=== PATIENT | male | born 1950 | race Two or more races ===

== ENCOUNTER 2024-07-01 05:35 | Day surgery (SDC) | payer OTHER, SELFPAY ==
--- NOTE | 2024-06-30 09:28 | EKG_ITS ---
[facility] Test Date: 2024-06-30 Pat Name: TESFAYE HERNANDEZ Department: Room: - Gender: Male Manager Home Improvement: CHACORTA : 1950 Requested By: Chris Merino Order Number: [id number] Reading MD: Chris Merino Measurements Intervals [place] Rate: 112 P: 15 WA: 180 QRS: 14 QRSD: 84 T: 14 QT: 300 QTc: 411 Interpretive Statements SINUS TACHYCARDIA LOW QRS VOLTAGE IN PRECORDIAL LEADS ABNORMAL RHYTHM ECG No previous ECG available for comparison /[id number]/S0/[id number]
[2024-06-30 09:36] VITALS: BMI 35.4
[2024-06-30 12:06] LABS: Basophils # (Auto) 0.1 Thou/mm3 (0.0-0.2); Basophils % (Auto) 1 % (0-2.5); Eosinophils # (Auto) 0.7 Thou/mm3 (0.0-0.5); Eosinophils % (Auto) 8 % (0-10); Hematocrit 41.5 % (41.0-53.0); Hemoglobin 14.4 g/dL (13.5-16.0); Immature Granulocytes % (Auto) 1 % (0-0); Immature Granulocytes Auto 0.05 Thou/mm3 (0.00-0.00); Lymphocytes # (Auto) 1.4 Thou/mm3 (1.0-4.8); Lymphocytes % (Auto) 16 % (10-50); Mean Corpuscular HGB Conc 34.7 g/dl (31.0-37.0); Mean Corpuscular Hemoglobin 33.4 pg (25.0-35.0); Mean Corpuscular Volume 96 fL (80-100); Monocytes # (Auto) 0.9 Thou/mm3 (0.0-0.8); Monocytes % (Auto) 10 % (0-12); Neutrophils # (Auto) 5.9 Thou/mm3 (1.8-7.7); Neutrophils % (Auto) 65 % (37-80); Nucleated Red Blood Cell % 0 /100 WBC (0); Platelet Count 359 Thou/mm3 (140-440); Red Blood Count 4.31 Miln/mm3 (4.50-5.90); White Blood Count 9.1 Thou/mm3 (3.8-10.6)
[2024-06-30 12:15] LABS: Partial Thromboplastin Time 33.6 Seconds (22.0-36.0)
[2024-06-30 12:27] LABS: Alanine Aminotransferase 21 U/L (10-49); Albumin, Serum 4.6 gm/dL (3.4-4.8); Alkaline Phosphatase 87 U/L (46-116); Anion Gap 8 (7-16); Aspartate Amino Transferase 26 U/L (0-34); BUN/Creatinine Ratio 12 Ratio (12-20); Bilirubin,Total 1.3 mg/dL (0.3-1.2); Blood Urea Nitrogen 15 mg/dL (9-23); Calcium 9.8 mg/dL (8.3-10.6); Calcium (Corrected) 9.8 mg/dL (8.5-10.1); Chloride 102 mMol/L (98-107); Creatinine (Component) 1.3 mg/dL (0.6-1.3); Estimated Creatinine Clearance 57.6 mL/min (>60); Globulin 2.3 gm/dL (2.3-3.5); Glucose 101 mg/dL (74-106); Osmolality,Calculated 272 (275-295); Potassium 4.3 mMol/L (3.4-5.1); Sodium 136 mMol/L (136-145); Total Protein 6.9 gm/dL (5.7-8.2); eGFR 59 See Note
--- NOTE | 2024-06-30 14:21 | SUR.PREOP ---
EKG reviewed with Dr Duarte. Pt walks with a cane due to knee pain.
[2024-07-01] VITALS (10 sets, daily range): BP systolic 93–137; BP diastolic 56–92; PULSE 84–109; RESP 13–20; TEMP 36.3–37.5; O2SAT 94–97; BMI 34.5
[2024-07-01] MEDS: RINGERS LACTATED 1000 ML 1,000 ML 20 ML IV (06:43)
--- NOTE | 2024-07-01 07:33 | CHAP ---
Patient expressed gratitude for prayer before their procedure.
--- NOTE | 2024-07-01 09:11 | PD.SUROPNT ---
Date of Procedure 07/01/24 Pre Op Diagnosis 1. Right shoulder impingement syndrome 2 right rotator cuff tear Post Op Diagnosis Same Procedure 1. Excision lateral end of the clavicle 2 excision coracoacromial ligament 3 acromioplasty 4 repair of rotator cuff 5 manipulation under anesthesia Findings Refer dictation Procedure Description The patient was given general endotracheal anesthesia. Right shoulder block was given as well. Once satisfactory anesthesia was achieved patient was put in about 45?? sitting position with sandbag underneath the right shoulder blade. The part was thoroughly prepped and draped. A skin incision was made at the AC joint extending proximally towards the neck for a half inches and distally towards the arm for about couple of inches. Deeper dissection was carried out. Bleeding vessels were electrocoagulated as and when encountered. The soft tissue was reflected. Following that AC joint was exposed. It revealed thick capsule and inferior osteophyte touching on the rotator cuff. The deltoid muscle was reflected from the anterior and lateral aspect of the acromial process. It revealed 3 to 4 mm osteophytes on the anterior aspect and 1 to 2 mm osteophytes on the lateral aspect of the acromial process Following that a periosteal elevator was placed underneath the lateral end of the clavicle and lateral 3-4 mm was excised. The coracoacromial ligament was removed. With the help of saw 2 mm of anterior aspect of the acromial process and 2 mm from the lateral aspect of the current process along with osteophytes were excised. With the help of curved osteotome the undersurface of the Acromial processes was chiseled out. That made more room between the superior surface of the head of the humerus and undersurface of the acromial process. Following that the rotator cuff was inspected. It revealed an oval tear, however most of the fibers were attached to the greater tuberosity. Wound was irrigated with antibiotic solution every 4-5 minutes. The right shoulder was manipulated at this time. The rotator cuff tear was repaired with 2-0 Vicryl. 2 drill holes were made on the acromial process and deltoid muscle was stitched back to it. Some reinforcement sutures were placed. The subcutaneous tissue was then closed with the help of 2-0 Vicryl and 3-0 Vicryl in layers. The skin was closed with odette. After cleaning the wound with hydrogel proximal solution and sterile dressing was applied. Patient was taken to the recovery room in good condition. Estimated blood loss 10 mL. Prognosis in this case is good. Anesthesia GETA and other Pathology / specimen None Estimated Blood Loss 10 Surgeon Chris Batres MD Surgical Staff Operation Date: 07/01/24 07:30 Case Staff Anesthesiologist: Cody Morataya RN First Assistant: Ana Guzman
--- NOTE | 2024-07-01 09:13 | SUR.PHASEI ---
0913 Patient arrived to recovery resting comfortably in [facility], on oxygen 10L via oxy mask, drowsy and talking with staff, breathing unlabored, vital signs stable, denies pain, dressing intact to right shoulder; odette, adaptic soaked in betadine, fluffs, abd, medipore tape with arm sling, no bleeding noted, patient has good circultation to right upper extremity; skin color normal for patient and warm to touch, lung sounds clear upon auscultation, bilateral radial pulses present when palpated, report received from Imtiaz BEAVER and Dr. Morataya
--- NOTE | 2024-07-01 09:41 | SUR.PHASEI ---
patient using incentive spirometer
--- NOTE | 2024-07-01 10:23 | SUR.PHASEII ---
1023 Patient meets discharge criteria from recovery, awake and alert, breathing unlabored, vital signs stable, denies pain, dressing intact; no bleeding noted, arm sling in place for support, patient eating ice chips; tolerating well, denies nausea, patient assisted with dressing into his clothing by this teletypewriter operator, discharge instructions given to patient and patients partner, partner signed discharge instructions. Patient given all his belongings prior to discharge, transported via wheelchair and left in a private vehicle.
== END 2024-07-01 10:23 | disposition home or self-care (01) ==
PROVIDERS: Anesthesiology; PCP Internal Medicine; Referring Provider Orthopaedic Surgery; Visit Provider Orthopaedic Surgery
PROC: (CPT 23412; principal; 2024-07-01 07:30)
DX: M75.101 Unspecified rotator cuff tear or rupture of right shoulder, not specified as traumatic (principal); M75.41 Impingement syndrome of right shoulder; M25.711 Osteophyte, right shoulder; Z01.810 Encounter for preprocedural cardiovascular examination
CPT/HCPCS: 23412; 23120; 36415; 80053; 85025; 85610; 85730; 93005; A4217; A4649; J1100; J1580; J1885; J2250; J2371; J2405; J2704; J2795; J3010; J3371; J3490; J7120

== ENCOUNTER → 2024-09-29 | Outpatient (CLI) | payer OTHER, SELFPAY ==
--- NOTE | 2024-09-29 | XR_ITS ---
Examination: AP knees single view TECHNIQUE: Standing AP knees single view Exam date and time: September 29, 2024 1256 hours INDICATIONS: Knee pain years getting worse. FINDINGS: Advanced narrowing medial joint space right knee olxy-fu-ldhg 6 mm area of osteochondritis dissecans medial femoral condyle No fracture Prominent osteopenia IMPRESSION: Advanced narrowing medial joint space right knee 6 mm osteochondritis dissecans medial femoral condyle
== END | disposition home or self-care (01) ==
PROVIDERS: PCP Internal Medicine; Referring Provider Internal Medicine; Visit Provider Internal Medicine
DX: M25.862 Other specified joint disorders, left knee (principal); M93.262 Osteochondritis dissecans, left knee
CPT/HCPCS: 73560

== ENCOUNTER 2024-10-14 18:10 | Inpatient (IN) | payer OTHER, MEDICARE, SELFPAY ==
[2024-10-13 10:21] VITALS: BMI 38.5
[2024-10-13 11:55] LABS: Basophils % (Auto) 1 % (0-2.5); Eosinophils # (Auto) 0.1 Thou/mm3 (0.0-0.5); Eosinophils % (Auto) 1 % (0-10); Hematocrit 35.9 % (41.0-53.0); Hemoglobin 12.5 g/dL (13.5-16.0); Immature Granulocytes % (Auto) 1 % (0-0); Immature Granulocytes Auto 0.12 Thou/mm3 (0.00-0.00); Lymphocytes # (Auto) 1.2 Thou/mm3 (1.0-4.8); Lymphocytes % (Auto) 14 % (10-50); Mean Corpuscular HGB Conc 34.8 g/dl (31.0-37.0); Mean Corpuscular Hemoglobin 32.7 pg (25.0-35.0); Mean Corpuscular Volume 94 fL (80-100); Monocytes # (Auto) 0.7 Thou/mm3 (0.0-0.8); Monocytes % (Auto) 8 % (0-12); Neutrophils # (Auto) 6.3 Thou/mm3 (1.8-7.7); Neutrophils % (Auto) 75 % (37-80); Nucleated Red Blood Cell % 0 /100 WBC (0); Platelet Count 441 Thou/mm3 (140-440); RDW Standard Deviation 49.1 fL (35.1-43.9); Red Blood Count 3.82 Miln/mm3 (4.50-5.90); White Blood Count 8.3 Thou/mm3 (3.8-10.6)
[2024-10-13 12:02] LABS: Prothrombin Time 10.9 Seconds (9.0-12.2)
[2024-10-13 12:06] LABS: Alanine Aminotransferase 24 U/L (10-49); Albumin, Serum 3.9 gm/dL (3.4-4.8); Albumin/Globulin Ratio 1.6 (1.2-2.2); Alkaline Phosphatase 68 U/L (46-116); Anion Gap 8 (7-16); Aspartate Amino Transferase 25 U/L (0-34); BUN/Creatinine Ratio 26 Ratio (12-20); Bilirubin,Total 0.7 mg/dL (0.3-1.2); Blood Urea Nitrogen 34 mg/dL (9-23); Calcium 9.1 mg/dL (8.3-10.6); Calcium (Corrected) 9.2 mg/dL (8.5-10.1); Carbon Dioxide 27.7 mMol/L (20.0-31.0); Chloride 104 mMol/L (98-107); Creatinine (Component) 1.3 mg/dL (0.6-1.3); Estimated Creatinine Clearance 54.3 mL/min (>60); Globulin 2.5 gm/dL (2.3-3.5); Glucose 114 mg/dL (74-106); Osmolality,Calculated 288 (275-295); Sodium 140 mMol/L (136-145); Total Protein 6.4 gm/dL (5.7-8.2); eGFR 59 See Note
--- NOTE | 2024-10-13 14:09 | ESHP_ITS ---
RE: TESFAYE HERNANDEZ : 1950 DATE OF ADMISSION: 10/14/2024 HISTORY OF PRESENT ILLNESS: The patient came to my office on 10/13/2024 for detailed preop history and physical examination. The patient presented to me earlier with history of pain in the left knee joint. The intensity of pain is 8-9/10. The patient is unable to sleep. The patient is unable to walk even 100-200 yards. Quality of life and activities of daily living is affected. The patient is unable to sleep. X-ray confirms severe osteoarthritic changes of the left knee joint. PAST MEDICAL HISTORY: The patient has history of high blood pressure. PAST SURGICAL HISTORY: The patient has had a rotator cuff repair done in the past. DRUG HISTORY: The patient is on, 1. Lisinopril. 2. Tramadol. FAMILY HISTORY AND SOCIAL HISTORY: The patient denies smoking, drinking and is not working. PHYSICAL EXAMINATION: GENERAL: Normal built person. VITAL SIGNS: Pulse 82 per minute. Blood pressure 130/76. NECK: Soft, supple. No masses felt. Trachea is centrally placed. CARDIOVASCULAR SYSTEM: First and second heart sounds normal. No murmur heard. LUNGS: Bilateral vesicular breath sounds. CHEST: Clear. ABDOMEN: Soft. No masses felt. Bowel sounds present. EXTREMITIES: Left knee examination revealed mild swelling. There is 2+ tenderness. Active range of motion 0-110 degrees of flexion. Patellofemoral crepitus is present. The patient walks with a limp. 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 DIAGNOSTIC DATA: X-ray confirms significant osteoarthritic changes of the left knee joint. ASSESSMENT AND PLAN: Since the patient is symptomatic and wants something to be done about it, therefore, left total knee replacement was discussed and advised. Risks with anesthesia was explained and that includes, but not limited to reaction to anesthesia agents, cardiac arrest or rarely it might be fatal. Risks with operation include infection and if that happens, the patient may need further surgical procedure. Other risks include delayed healing, wound dehiscence, etc. No guarantee is given regarding outcome of the procedure and relief of symptoms. Sometimes rare complication happens and that includes possible damage to nerve and vessels and if that happens that has to be taken care of. Accordingly, surgery is booked for 10/14/2024. Appropriate lab work was done. DT: 12:50:42 TT: 14:07:00 Ref: [id number] - TID: [id number]
--- NOTE | 2024-10-13 14:30 | SUR.PREOP ---
Pt has shoulder surgery 6 months ago, pt sees Dr Zaragoza for HTN, no cardiac issues, records requested from [facility] in [place], [facility]....
[2024-10-14] VITALS (22 sets, daily range): BP systolic 123–183; BP diastolic 64–103; PULSE 58–96; RESP 12–20; TEMP 36.1–36.5; O2SAT 93–98; BMI 38.2
--- NOTE | 2024-10-14 07:29 | SUR.PREOP ---
Patient expressed gratitude for prayer before their procedure.
--- NOTE | 2024-10-14 10:32 | XR_ITS ---
Examination: Knee, left , 3 views Technique: Knee AP, lateral, oblique 3 views Date and time of exam: October 14, 2024 1213 hrs. Indications: Postop knee replacement Findings: Total left knee arthroplasty. Satisfactory alignment No fracture Impression: Total left knee arthroplasty with satisfactory alignment
--- NOTE | 2024-10-14 10:32 | ESOP_ITS ---
Date of Procedure 10/14/24 Pre Op Diagnosis Severe DJD left knee joint Post Op Diagnosis Same Procedure Left total knee replacement MR rene implant. Femur size 8 standard Tibial baseplate size E Polyethylene size 11 mm with medial stabilizer Patella size 26 mm Findings Patient with severe osteoarthritic changes. Most of the articular cartilage wear absent from the medial femoral condyle and also lateral femoral condyle. Significant osteophytes were present Procedure Description The patient was given a [spinal] anesthesia. Once satisfactory anesthesia was achieved a tourniquet was placed on left upper thigh. Intravenous antibiotics was given at the time of anesthesia. The patient was thoroughly prepped and draped. After using Esmarch the tourniquet pressure was raised to 350 mmHg. A skin incision was made 2 inches proximal to the upper pole of patella going as far down as up to the medial aspect of the tibial tuberosity. The skin was raised as a flap on the site. The bleeding vessels were electrocoagulated as and when encountered. The quadriceps tendon, medial border of the patella and the patellar tendon al estelle the medial aspect of the tibial tuberosity was incised and reflected. The patellar tendon was reflected as much as needed to kenroy the patella. The soft tissue from the upper medial border of the tibia was reflected to correct her genu varum deformity. The knee joint was flexed. The anterior cruciate ligament, medial and lateral meniscus were excised. Next para drill hole was made to the inferior surface of the femur. Following that a swab was placed. A 4?? of abduction was already put into it. Following that a cutting block for the inferior cut of the femur was placed and nicely secured with the pins. The swat was removed. The inferior cut of the femur was made and after that the cutting block was removed. Following that a sizer was placed. A decision was made to use size [8] femur implant. 2 drill holes each in 3?? of external rotation were made. The sizer was removed. Size [8] cutting block was placed. Following that anterior, posterior, anterior chamfer and posterior chamfer cuts were made. The cutting block was removed. The knee joint was extended and a 10 mm trial plastic was removed and the intended level of the tibial cut was marked. The knee joint was flexed. With the help of double-pronged the tibia was displaced anteriorly. An extramedullary jig for the cutting block placement of the tibia was placed. The mechanical axis of the zig was parallel to the mechanical axis of the tibia. Following that the tibial cutting block was placed at the desired level and was secured nicely with the help of pins. Following that the tibial cut was made. In this case was posterior cruciate ligament was saved. The cutting block was removed. The spacer was placed and a decision was made to use size [11] polyethylene. The sizing of the tibial baseplate was done and the decision was made to use size [E] tibial baseplate. Following that size [8] trial femur implant was placed in lateralized position and size [E] tibial tibial baseplate along with size [11] medial stabilizer plastic was placed in knee joint was flexed and extended quite a few times and tibial baseplate was allowed to sit wherever it wanted to. The markings were made for the tibial baseplate. 2 drill holes were made for the inferior surface of the femur trial implant. The trial implant was removed and tibial baseplate was placed again with the help of pins. The collar was placed and superior hole was drilled. Following that a fin cut was made. The patella was reamed with [26] mm diameter reamer. [12] mm thickness was left. A collar was placed and 3 drill holes were made. All the trial implant was placed and patellar tracking was checked and found to be good. Lateral release was done at this point. The wound was irrigated with antibiotic solution every 4-5 minutes. Now the power lavage antibiotic solution was used. The knee joint was flexed. The bone were made dry. The cement was mixed. With the help of cement the tibial baseplate was mounted. The excess cement was removed. The femur implant was placed and trial plastic was placed and knee joint was extended. Patella was also mounted with the help of cementing. Excess cement was removed. Osteophytes from the patella was removed at this time. Once the cement was set the tourniquet pressure was released. The bleeding vessels were electrocoagulated. The trial plastic was removed and 11 mm medially stabilizer ultra high molecular weight polyethylene was placed. Closure The quadriceps tendon, medial border of the patella and patellar tendon was closed with the help of 1-0 strata fix in continuous fashion and the subcutaneous tissue was closed with 2 oh STRATAFIX in continuous fashion was applied. The skin was closed with Prineo tape The wound was covered with a sterile dressing. Patient tolerated procedure very well. Estimated blood loss 25 mL Prognosis in this case is good. This was taken to the recovery room in good condition. Anesthesia GETA Pathology / specimen None Estimated Blood Loss 25 Surgeon Chris Batres MD Surgical Staff Operation Date: 10/14/24 07:30 Case Staff Anesthesiologist: Blake Duarte RNbareback rider: Timoteo Bliss
--- NOTE | 2024-10-14 10:43 | SUR.PHASEI ---
pt arrived to PACU via bed drowsy but arouses to voice, respirations even and unlabored, dressing to left lower extremity clean, dry, and intact, bilateral pedal pulses present and equal, circulation to bilateral toes WNL, report from Markell BEAVER, Charo BENZ, and Dr Duarte.
--- NOTE | 2024-10-14 10:58 | SUR.PHASEI ---
pt tolerating ice chips without difficulty swallowing or n/v
[2024-10-14] MEDS: hydrALAZINE INJ 20 MG/ML VIAL 5 MG IV (11:03)
--- NOTE | 2024-10-14 12:03 | SUR.PHASEII ---
1203:received report from Cata BEAVER. pt alert and oriented to name, place and time. denies any pain or discomfort. no s/s of resp. distress or discomfort. dressing left knee clean, dry and intact. no bleeding noted from dressing. positive CMS: cap refill less than 2 seconds, positive pulse and able to wiggle left toes.
--- NOTE | 2024-10-14 12:20 | SUR.PHASEII ---
1220: x-ray completed at this time.
[2024-10-14] MEDS: fentaNYL CIT INJ 50 mCg/ML AMP 2ML IV ×2 (12:42→17:40)
--- NOTE | 2024-10-14 12:55 | SUR.PHASEII ---
1255: reported given to SD Ivy. pt alert and oriented. no s/s of resp. discomfort or distress. dressing to left knee clean, dry and intact. positive CMS: cap refill less than 2 seconds, positive pulse and able to wiggle left toes.
--- NOTE | 2024-10-14 16:34 | SUR.PHASEII ---
Received report on pt. s/p surgery from Cata Rojas RN. Pt. is AAOx3, VSS, no c/o pain or nausea at this time, dressing to left knee CDI, pt.'s at bedside, pt. awaiting room assignment.
--- NOTE | 2024-10-14 17:56 | SUR.PHASEII ---
Called and gave report on pt. s/p surgery to Cecy BEAVER on M/S unit. Pt. is AAOX3, sitting up, tolerating fluids, VSS.
--- NOTE | 2024-10-14 18:15 | SUR.PHASEII ---
Pt. transfered to room 369 via bed with all of belongings, VSS, no c/o pain or nausea at this time, IV flushed and patent, dressing to left knee CDI, pt. receiving 2 liters 02 via NC. Pt.'s at bedside. Cecy BEAVER assumed care of pt.
--- NOTE | 2024-10-14 19:16 | PC.NURSE ---
report given to Lara BEAVER
[2024-10-14] MEDS: MORPHINE SULF INJ 10 MG/ML VIAL 4 MG IV (20:56)
[2024-10-14] MEDS: ONDANSETRON INJ 2 MG/ML INJ 2 ML 4 MG IV (20:57)
[2024-10-15] VITALS (8 sets, daily range): BP systolic 114–162; BP diastolic 61–90; PULSE 63–82; RESP 18–20; TEMP 36.1–37.6; O2SAT 92–97
[2024-10-15] MEDS: MORPHINE SULF INJ 10 MG/ML VIAL 4 MG IV ×4 (02:17→22:26)
[2024-10-15 05:51] LABS: Basophils % (Auto) 0 % (0-2.5); Eosinophils % (Auto) 0 % (0-10); Hematocrit 35.3 % (41.0-53.0); Hemoglobin 11.8 g/dL (13.5-16.0); Immature Granulocytes % (Auto) 1 % (0-0); Lymphocytes # (Auto) 0.9 Thou/mm3 (1.0-4.8); Lymphocytes % (Auto) 7 % (10-50); Mean Corpuscular HGB Conc 33.4 g/dl (31.0-37.0); Mean Corpuscular Hemoglobin 33.3 pg (25.0-35.0); Mean Corpuscular Volume 100 fL (80-100); Monocytes # (Auto) 1.1 Thou/mm3 (0.0-0.8); Monocytes % (Auto) 9 % (0-12); Neutrophils # (Auto) 10.6 Thou/mm3 (1.8-7.7); Neutrophils % (Auto) 84 % (37-80); Nucleated Red Blood Cell % 0 /100 WBC (0); Platelet Count 396 Thou/mm3 (140-440); RDW Standard Deviation 53.1 fL (35.1-43.9); Red Blood Count 3.54 Miln/mm3 (4.50-5.90); White Blood Count 12.7 Thou/mm3 (3.8-10.6)
--- NOTE | 2024-10-15 09:51 | PC.NURSE ---
Dr. Pierre authorized resume home meds. Pharmacy made aware.
[2024-10-15] MEDS: Lisinopril 2.5 MG TABLET PO (09:55)
[2024-10-15] MEDS: carVEDILOL 3.125 MG TABLET PO ×2 (09:55→17:43)
--- NOTE | 2024-10-15 12:49 | PC.NURSE ---
Dr. Pierre made aware PT evaluated not safe to go home, PT continue working with pt, order received, read back and carried out.
--- NOTE | 2024-10-15 14:38 | ESCONSULT_ITS ---
<Statement entered by Salvador Menjivar MD - 10/21/24 08:55> I reviewed above note and agree with findings and plans. I have also personally examined the patient with medicine team and went over assessment and plan with medical team including learning and development intern and resident physician. HPI Data of Consult Requesting Physician: Chris Batres MD Admitting Provider: Chris Batres MD Attending Provider: Chris Batres MD Primary Care Provider: Prakash Goodwin MD Consult Narrative History of present illness: Neurologic every 4 hours patient is 73-year-old male with past medical history of hypertension, chronic left knee pain was admitted to the hospital after elective left total knee replacement. Surgery went without complication, pain was managed accordingly by orthopedic. However we were consulted for blood pressure management. At home patient is on losartan/hydrochlorothiazide, along with Coreg twice daily. Upon our evaluation patient was hemodynamically stable, blood pressure was already 146/100 after 1 dose of lisinopril. Denied any headache, shortness of breath, chest pain, palpitation, vision changes, or any other associated symptoms. Was complaining of left knee pain postsurgery, pain is managed with [place] and morphine as needed. Patient today worked with physical therapist, will have another session tomorrow, anticipate discharge in the next 24-hour. PMH as above PSH rotator cuff repair, left total knee replacement Meds valsartan/hydrochlorothiazide, Coreg Family history unremarkable Social history patient denies smoking, drinking or any other drug use cc:: cc: Chris Batres MD Review of Systems Review of Systems Systems Reviewed: All systems reviewed, normal except as documented Exam Vital Signs Temp Pulse Resp BP Pulse Ox O2 Del Method O2 Flow Rate 97.0 F 63 18 162/90 H 97 Nasal Cannula 1 10/15/24 08:00 10/15/24 09:55 10/15/24 08:00 10/15/24 09:55 10/15/24 08:00 10/15/24 08:00 10/15/24 08:00 Narrative Exam GENERAL: no acute distress, AAO x3, well nourished. HEENT: Head AT/ NC. Mucous membranes moist. PERRL. NECK: Supple, no lymphadenopathy, no carotid bruits. CARDIOVASCULAR: RRR. Normal S1/S2, No m/r/g. No pitting edema of bilateral LEs. RESPIRATORY: CTAB. No wheezing, rhonchi, crackles. GASTROINTESTINAL: Abdomen soft, non tender no palpable masses. Bowel sounds present in all 4 quadrants. MUSCULOSKELETAL:?Left lower leg is in cast postsurgery, decreased range of motion in left lower extremity, preserved on right lower extremity, no cyanosis or edema noted. NEUROLOGICAL: CN II-XII grossly intact. No focal deficits. Sensation intact, symmetric. PSYCHIATRIC: Awake and alert, not agitated, normal mood and affect. INTEGUMENTARY: No obvious rashes, no jaundice, normal turgor. Results Labs 10/15/24 04:55 10/13/24 10:45 Labs: Short CBC 10/15/24 Range/Units 04:55 WBC 12.7 H D (3.8-10.6) Thou/mm3 Hgb 11.8 L (13.5-16.0) g/dL Hct 35.3 L (41.0-53.0) % Plt Count 396 D (140-440) Thou/mm3 Quality Measures Quality Measures none Advance care planning discussed with:: patient Medications Home Medications and Allergies Home Medications ?Medication ?Instructions ?Recorded ?Confirmed ?Type carvedilol 3.125 mg tablet 3.125 mg PO BID 06/30/24 History furosemide 20 mg tablet 20 mg PO DAILY 10/13/2410/04 History losartan 50 mg-hydrochlorothiazide 1 tab PO DAILY 10/0410/14/24 History 12.5 mg tablet lisinopril 2.5 mg tablet 2.5 mg PO DAILY 10/15/2406/29 History Allergies Allergy/AdvReac Type Severity Reaction Status Date / Time Penicillins Allergy Severe Difficulty Verified 10/14/24 06:12 Breathing Visit Medications Carvedilol (Carvedilol 3.125 Mg Tablet) 3.125 mg PO BIDWM [facility]; Protocol Stop: 11/14/24 09:59 Last Admin: 10/15/24 09:55 Dose: 3.125 mg Hydrochlorothiazide (Hydrochlorothiazide 12.5 Mg Capsule) 12.5 mg PO QDAY [facility] Stop: 11/15/24 08:59 Losartan Potassium (Losartan Potassium 25 Mg Tablet) 50 mg PO QDAY [facility] Stop: 11/15/24 08:59 Morphine Sulfate (Morphine Sulf Inj 10 Mg/Ml Vial) 4 mg IV Q4HR PRN PRN Reason: PAIN Stop: 10/19/24 18:47 Last Admin: 10/15/24 09:02 Dose: 4 mg Ondansetron HCl (Ondansetron Inj 2 Mg/Ml Inj 2 Ml) 4 mg IV Q6HR PRN PRN Reason: NAUSEA OR VOMITING Stop: 11/13/24 18:47 Last Admin: 10/14/24 20:57 Dose: 4 mg Discontinued Medications Sodium Chloride 3,000 ml/ (Gentamicin Sulfate 120 mg) 0 ml IRRIG X1 ONE Stop: 10/14/24 07:06 Last Admin: 10/14/24 15:17 Dose: Not Given Sodium Chloride 1,000 ml/ (Gentamicin Sulfate 40 mg) 0 ml IRRIG X1 ONE Stop: 10/14/24 07:07 Last Admin: 10/14/24 15:16 Dose: Not Given Fentanyl Citrate (Fentanyl Cit Inj 50 Mcg/Ml Amp 2ml) 50 mcg IV Q5MIN PRN PRN Reason: PAIN SCALE 4-10(Mod-Sev Stop: 10/14/24 10:59 Last Admin: 10/14/24 17:40 Dose: 50 mcg Hydralazine HCl (Hydralazine Inj 20 Mg/Ml Vial) 5 mg IV Q20MIN PRN PRN Reason: SEE COMMENTS Stop: 10/14/24 10:59 Last Admin: 10/14/24 11:03 Dose: 5 mg Hydromorphone HCl (Hydromorphone Inj 2 Mg/Ml Vial) 0.5 mg IV Q10MIN PRN PRN Reason: PAIN SCALE 4-10(Mod-Sev Stop: 10/14/24 10:59 Cefazolin Sodium (Ancef 2gm Ivpb) 2 gm in 100 mls @ 100 mls/hr IV X1 ONE; Protocol Stop: 10/14/24 06:59 Last Admin: 10/14/24 15:17 Dose: Not Given Lactated Ringer's (Lactated Ringers) 1,000 mls @ 20 mls/hr IV .Q24H ONE Stop: 10/15/24 05:59 Last Admin: 10/14/24 15:17 Dose: Not Given Lisinopril (Lisinopril 2.5 Mg Tablet) 2.5 mg PO QDAY LAILA; Protocol Stop: 11/14/24 09:59 Last Admin: 10/15/24 09:55 Dose: 2.5 mg Meperidine HCl (Meperidine Inj 50 Mg/Ml Vial) 12.5 mg IV Q5M PRN PRN Reason: SHIVERING Stop: 10/14/24 10:59 Metoclopramide HCl (Metoclopramide Inj 5 Mg/Ml Vial 2 Ml) 10 mg IVP X1 PRN; Protocol PRN Reason: NAUSEA OR VOMITING Metoprolol Tartrate (Metoprolol Tartrate Inj 1 Mg/Ml Amp 5 Ml) 1 mg IVP Q5MIN PRN PRN Reason: TACHYCARDIA Midazolam HCl (Midazolam Inj 1 Mg/Ml Vial 2 Ml) 1 mg IV Q5MIN PRN PRN Reason: ANXIETY Ondansetron HCl (Ondansetron Inj 2 Mg/Ml Inj 2 Ml) 4 mg IV X1 PRN PRN Reason: NAUSEA OR VOMITING Assessment & Plan Plan 73-year-old male with past medical history of hypertension was admitted into the hospital after having elective left lower knee replacement done by Dr. Gilman. Internal medicine team was consulted due to uncontrolled hypertension. #History of hypertension -Resume home Coreg 3.125 mg twice daily -Valsartan/hydrochlorothiazide daily - Hydralazine as needed SBP more than 170, DBP 110, - Close monitor vitals -Patient currently is hemodynamically stable, denies any headache, vision changes, or any other associated symptoms #Status post left lobectomy total replacement - Pain management as needed - Physical therapy - Managed by orthopedic surgery Disposition: MedSur DVT prophylaxis: Not indicated, to be decided by primary team GI prophylaxis: Not indicated, Diet: Regular Lines: PIV CODE STATUS:Full code Patient care was discussed with attending physician Dr. Kristine John MD PGY-2
[2024-10-16] VITALS (8 sets, daily range): BP systolic 115–150; BP diastolic 62–83; PULSE 78–105; RESP 18–20; TEMP 36.6–37.4; O2SAT 91–93
[2024-10-16] MEDS: MORPHINE SULF INJ 10 MG/ML VIAL 4 MG IV ×3 (03:50→17:08)
[2024-10-16 06:11] LABS: Basophils # (Auto) 0.1 Thou/mm3 (0.0-0.2); Basophils % (Auto) 1 % (0-2.5); Eosinophils # (Auto) 0.2 Thou/mm3 (0.0-0.5); Eosinophils % (Auto) 2 % (0-10); Hematocrit 37.1 % (41.0-53.0); Hemoglobin 12.3 g/dL (13.5-16.0); Immature Granulocytes % (Auto) 2 % (0-0); Immature Granulocytes Auto 0.19 Thou/mm3 (0.00-0.00); Lymphocytes # (Auto) 1.7 Thou/mm3 (1.0-4.8); Lymphocytes % (Auto) 16 % (10-50); Mean Corpuscular HGB Conc 33.2 g/dl (31.0-37.0); Mean Corpuscular Hemoglobin 32.6 pg (25.0-35.0); Mean Corpuscular Volume 98 fL (80-100); Monocytes # (Auto) 1.1 Thou/mm3 (0.0-0.8); Monocytes % (Auto) 10 % (0-12); Neutrophils # (Auto) 7.5 Thou/mm3 (1.8-7.7); Neutrophils % (Auto) 70 % (37-80); Nucleated Red Blood Cell % 0 /100 WBC (0); Platelet Count 363 Thou/mm3 (140-440); RDW Standard Deviation 53.9 fL (35.1-43.9); Red Blood Count 3.77 Miln/mm3 (4.50-5.90); White Blood Count 10.7 Thou/mm3 (3.8-10.6)
[2024-10-16 06:43] LABS: Alanine Aminotransferase 21 U/L (10-49); Albumin, Serum 3.7 gm/dL (3.4-4.8); Albumin/Globulin Ratio 1.5 (1.2-2.2); Alkaline Phosphatase 56 U/L (46-116); Anion Gap 9 (7-16); Aspartate Amino Transferase 22 U/L (0-34); BUN/Creatinine Ratio 17 Ratio (12-20); Bilirubin,Total 1.1 mg/dL (0.3-1.2); Blood Urea Nitrogen 19 mg/dL (9-23); Calcium 8.8 mg/dL (8.3-10.6); Carbon Dioxide 28.1 mMol/L (20.0-31.0); Chloride 103 mMol/L (98-107); Creatinine (Component) 1.1 mg/dL (0.6-1.3); Estimated Creatinine Clearance 62.6 mL/min (>60); Globulin 2.5 gm/dL (2.3-3.5); Glucose 88 mg/dL (74-106); Osmolality,Calculated 280 (275-295); Potassium 4.2 mMol/L (3.4-5.1); Sodium 140 mMol/L (136-145); Total Protein 6.2 gm/dL (5.7-8.2); eGFR > 60 See Note
[2024-10-16] MEDS: LOSARTAN POTASSIUM 25 MG TABLET 50 MG PO (08:26)
[2024-10-16] MEDS: carVEDILOL 3.125 MG TABLET PO ×2 (08:27→17:08)
[2024-10-16] MEDS: hydroCHLOROthiazide 12.5 MG CAPSULE PO (08:27)
--- NOTE | 2024-10-16 10:09 | CHAP ---
Patient was visited by the Spiritual Care Volunteer who prayed for them. (Volunteer was in the hospital from 11:05-11:50.)
--- NOTE | 2024-10-16 15:42 | ESPR_ITS ---
<Statement entered by Salvador Menjivar MD - 10/21/24 12:57> I reviewed above note and agree with findings and plans. I have also personally examined the patient with medicine team and went over assessment and plan with medical team including auditor internal and resident physician. Documentation for date of: 10/16/24 Subjective Subjective Interval history: Patient was evaluated at the patient at the bedside, no active complaints, postop status, blood pressure improving, per patient started on losartan, hydrochlorothiazide and carvedilol. Will defer pain management and DVT prophylaxis to primary team. Internal medicine team will sign off at this point. Thank you for allowing us to participate in the care of Timmy Ballard? . Exam Vital Signs Temp Pulse Resp BP Pulse Ox O2 Del Method O2 Flow Rate 98.7 F 103 H 19 115/62 93 L Room Air 1 10/16/24 12:00 10/16/24 12:00 10/16/24 12:00 10/16/24 12:00 10/16/24 12:00 10/16/24 12:10/15/24 16:00 Narrative Exam GENERAL: no acute distress, AAO x3, well nourished. HEENT: Head AT/ NC. Mucous membranes moist. PERRL. NECK: Supple, no lymphadenopathy, no carotid bruits. CARDIOVASCULAR: RRR. Normal S1/S2, No m/r/g. No pitting edema of bilateral LEs. RESPIRATORY: CTAB. No wheezing, rhonchi, crackles. GASTROINTESTINAL: Abdomen soft, non tender no palpable masses. Bowel sounds present in all 4 quadrants. MUSCULOSKELETAL:?Left lower leg is in cast postsurgery, decreased range of motion in left lower extremity, preserved on right lower extremity, no cyanosis or edema noted. NEUROLOGICAL: CN II-XII grossly intact. No focal deficits. Sensation intact, symmetric. PSYCHIATRIC: Awake and alert, not agitated, normal mood and affect. INTEGUMENTARY: No obvious rashes, no jaundice, normal turgor. Objective Labs 10/16/24 04:50 10/16/24 04:50 Labs: Laboratory Results - last 24 hr 10/13/24 10/16/24 10:45 04:50 WBC 10.7 H RBC 3.77 L Hgb 12.3 L Hct 37.1 L MCV 98 MCH 32.6 MCHC 33.2 RDW Std Deviation 53.9 H Plt Count 363 D Neut % (Auto) 70 Lymph % (Auto) 16 [place] % (Auto) 10 Eos % (Auto) 2 Baso % (Auto) 1 Neut # (Auto) 7.5 Lymph # (Auto) 1.7 [place] # (Auto) 1.1 H Eos # (Auto) 0.2 Baso # (Auto) 0.1 Immature Gran # (Auto) 0.19 H Absolute Nucleated RBC 0.00 Immature Gran % 2 H Nucleated RBC % 0 Sodium 140 Potassium 4.2 Chloride 103 Carbon Dioxide 28.1 Anion Gap 9 BUN 19 Creatinine 1.1 Estim Creat Clear Calc 62.6 eGFR > 60 BUN/Creatinine Ratio 17 Glucose 88 Calculated Osmolality 280 Calcium 8.8 Corrected Calcium 9.0 Total Bilirubin 1.1 AST 22 ALT 21 Alkaline Phosphatase 56 Total Protein 6.2 Albumin 3.7 Globulin 2.5 Albumin/Globulin Ratio 1.5 Crossmatch See Detail Quality Measures Quality Measures none Advance care planning discussed with:: patient Assessment & Plan Assessment Current Active Medications: Generic Name Dose Route Start Last Admin Trade Name Freq PRN Reason Stop Dose Admin Carvedilol 3.125 mg 10/15/24 10:00 10/16/24 08:27 Carvedilol 3.125 Mg Tablet PO 11/14/24 09:59 3.125 mg BIDWM LAILA Administration Protocol Hydralazine HCl 10 mg 10/15/24 16:01 Hydralazine Inj 20 Mg/Ml Vial IV 11/14/24 16:14 Q6H PRN hypertension Hydrochlorothiazide 12.5 mg 10/16/24 09:00 10/16/24 08:27 Hydrochlorothiazide 12.5 Mg Capsule PO 11/15/24 08:59 12.5 mg QDAY LAILA Administration Losartan Potassium 50 mg 10/16/24 09:00 10/16/24 08:26 Losartan Potassium 25 Mg Tablet PO 11/15/24 08:59 50 mg QDAY LAILA Administration Morphine Sulfate 4 mg 10/14/24 18:48 10/16/24 10:28 Morphine Sulf Inj 10 Mg/Ml Vial IV 10/19/24 18:47 4 mg Q4HR PRN Administration PAIN Ondansetron HCl 4 mg 10/14/24 18:48 10/14/24 20:57 Ondansetron Inj 2 Mg/Ml Inj 2 Ml IV 11/13/24 18:47 4 mg Q6HR PRN Administration NAUSEA OR VOMITING Plan 73-year-old male with past medical history of hypertension was admitted into the hospital after having elective left lower knee replacement done by Dr. Gilman. Internal medicine team was consulted due to uncontrolled hypertension. #History of hypertension -Resume home Coreg 3.125 mg twice daily -Valsartan/hydrochlorothiazide daily - Hydralazine as needed SBP more than 170, DBP 110, - Close monitor vitals -Patient currently is hemodynamically stable, denies any headache, vision changes, or any other associated symptoms #Status post left lobectomy total replacement - Pain management as needed - Physical therapy - Managed by orthopedic surgery Disposition: MedSurg , Will defer pain management and DVT prophylaxis to primary team. Internal medicine team will sign off at this point. Thank you for allowing us to participate in the care of Timmy Ballard? . DVT prophylaxis: Not indicated, to be decided by primary team GI prophylaxis: Not indicated, Diet: Regular Lines: PIV CODE STATUS:Full code Patient care was discussed with attending physician Dr. Tiara Powers Pgy 2
--- NOTE | 2024-10-16 19:35 | PC.NURSE ---
Called MD Pierre, per pt supposed to go home yesterday. Spoke to pt and pts and pt pt is unable to ambulate yesterday thats why pt didnt go home. Pt will be discharge today.
--- NOTE | 2024-10-16 20:00 | PC.NURSE ---
Pt left per private vehicle accompanied by his , pt is alert and oriented, no complaints of pain at time of discharge.
--- NOTE | 2024-10-18 16:27 | PD.ANESPROG ---
Documentation for date of: 10/18/24 POST ANESTHESIA NOTE: Patient had GETA and L femoral nerve block for L TKA on 10/14/24. I just called his two numbers for follow up but no answer. Blake Duarte MD Anesthesia Progress Note Progress Note Most recent Vital Signs: Last Vital Signs Temp 99.0 F 10/16/24 16:00 Pulse 102 H 10/16/24 17:08 Resp 18 10/16/24 16:00 BP 150/79 H 10/16/24 17:08 Pulse Ox 91 L 10/16/24 16:00 O2 Del Method Room Air 10/16/24 16:00 O2 Flow Rate 1 10/15/24 16:00
== END 2024-10-16 20:00 | disposition home or self-care (01) | DRG 470 ==
LOC: S3SX 18:35
PROVIDERS: Anesthesiology; Student in an Organized Health Care Education/Training Program; Admitting Provider Orthopaedic Surgery; PCP Internal Medicine; Referring Provider Orthopaedic Surgery; Visit Provider Orthopaedic Surgery
DX: M17.12 Unilateral primary osteoarthritis, left knee (principal); I10 Essential (primary) hypertension; G89.29 Other chronic pain
CPT/HCPCS: 36415; 73562; 80053; 85025; 85610; 85730; 86850; 86900; 86901; 86923; 87081; 97163; A4217; J0360; J1100; J1580; J2250; J2270; J2371; J2405; J2704; J2795; J3010; J3371; J3490; J7030; A9270; J1805